=== PATIENT | male | born 1980 | race Caucasian/White ===

== ENCOUNTER 2020-09-23 15:58 | Emergency (ER) | payer OTHER ==
[~2020-09-23 15:58] MED LIST: FLEXERIL10 MG PO; VOLTAREN **OUT75 MG PO
[2020-09-23 18:06] LABS: BASOPHIL 0.3 % (0-2); EOSINOPHIL 0.2 % (0-5); HCT 49.4 % (42.0-52.0); HGB 16.8 g/dl (13.2-18.0); LYMPHOCYTE 6.4 % (15-48); MCH 29.9 pg (25.0-31.0); MCV 88.1 fL (78.0-100.0); MONOCYTE 7.6 % (0-12); MPV 10.9 fL (6.0-9.5); NEUTROPHIL 85.2 % (41-80); NRBC 0; PLT 133 K/uL (150-400); RBC 5.61 M/uL (4.70-6.00); RDW 13.2 % (11.5-14.0); WBC 6.1 K/uL (4.0-10.5)
[2020-09-23 18:16] LABS: ALBUMIN 3.9 g/dL (3.4-5.0); BILIRUBIN - TOTAL 0.7 mg/dL (0.2-1.0); BUN/CREAT RATIO (CALC) 12.6 RATIO; CREATININE 1.27 mg/dL (0.67-1.17); GLOBULIN (CALCULATION) 3.3 g/dL; TOTAL PROTEIN 7.2 g/dL (6.4-8.2)
[2020-09-23 18:49] LABS: CORONAVIRUS 2019 SARS-COV-2 NEGATIVE (NEGATIVE); INFLUENZA A NAA NEGATIVE (NEGATIVE)
[2020-09-23] MEDS ORDERED: PHENERGAN25 M1 PO (20:19)
[2020-09-23 20:22] LABS: BILIRUBIN 2+ mg/dL (NEGATIVE); BLOOD NEGATIVE Ery/uL (NEGATIVE); CLARITY CLEAR (CLEAR); COLOR YELLOW (YELLOW); GLUCOSE (U) NORMAL (NORMAL); LEUKOCYTES NEGATIVE Leu/uL (NEGATIVE); NITRITE NEGATIVE (NEGATIVE); PROTEIN NEGATIVE (NEGATIVE); SPECIFIC GRAVITY >=1.030 (1.001-1.030); UROBILINOGEN 0.2 mg/dL (0.2-1.0)
== END 2020-09-23 20:38 | disposition home or self-care (01) ==
LOC: FER 15:58
PROVIDERS: Nurse Practitioner Family
DX: R11.2 Nausea with vomiting, unspecified (principal); R19.7 Diarrhea, unspecified; R51.9 Headache, unspecified; M79.10 Myalgia, unspecified site; I10 Essential (primary) hypertension; Z20.822 Contact with and (suspected) exposure to COVID-19
CPT/HCPCS: 36415; 80053; 81003; 85025; J1885; J2405; J2550; J7030; U0002